=== PATIENT | female | born 1970 | race Hispanic/Latino ===

== ENCOUNTER 2020-04-20 14:58 | Emergency (ER) | payer OTHER ==
[~2020-04-20] VITALS: Ht 162.6 cm; Wt 72.7 kg
[~2020-04-20 14:58] MED LIST: AMOXICILLIN500 MG PO; FLEXERIL PO; KEFLEX500 M1 PO; NAPROSYN500 MG PO; ROBITUSSIN200 MG/10 PO; TESSALON PER100 MG PO; VALTREX1 GM PO; ZITHROMAX250 MG PO; [UNRECOGNIZED DRUG - REMARK]
[2020-04-20] MEDS ORDERED: IBUPROFEN600 MG PO (17:48)
[2020-04-20 18:28] VITALS: BP 140/81
== END 2020-04-20 18:40 | disposition home or self-care (01) | DRG 313 ==
LOC: ED 14:58
DX: R07.89 Other chest pain (principal); V49.40XA Driver injured in collision with unspecified motor vehicles in traffic accident, initial encounter

== ENCOUNTER 2020-09-19 16:02 | Emergency (ER) | payer SELFPAY ==
[~2020-09-19] VITALS: Ht 162.6 cm; Wt 81.0 kg
[~2020-09-19 16:02] MED LIST changes: +IBUPROFEN600 MG PO
[2020-09-19 16:56] LABS: HEMATOCRIT 39.9 % (37.0-47.0); HEMOGLOBIN 12.8 g/dl (12.0-16.0); IMMATURE GRANULOCYTES 0.3 % (0.0-5.0); MEAN CELL VOLUME 93.2 fL CALC (80.0-100.0); MEAN CORPUSCULAR HGB 29.9 pG CALC (26.0-32.0); MEAN CORPUSCULAR HGB CONC 32.1 g/dL CAL (32.0-36.0); NEUT# 7.95 thou/uL (2.00-7.15); RED BLOOD COUNT 4.28 mill/uL (4.20-5.60); RED CELL DISTRI WIDTH 14.6 % (11.5-15.5)
[2020-09-19 17:08] LABS: ALBUMIN 4.4 g/dL (3.2-5.0); ALKALINE PHOSPHATASE 121 u/l (38-126); ANION GAP 10 (6-22 (CALC)); BILIRUBIN, TOTAL 0.6 mg/dL (0.0-1.4); BUN 8 mg/dL (7-17); BUN/CREATININE RATIO 14 (12-20 (CALC)); CARBON DIOXIDE 27 mmol/l (22-30); CHLORIDE 103 mmol/l (95-108); CREATININE 0.6 mg/dL (0.5-1.0); GFR > 60 ML/MIN (>=60 (CALC)); GFR FOR AFR.AMER. > 60 ML/MIN (>=60 (CALC)); POTASSIUM 3.7 mmol/l (3.5-5.1); SGOT/AST 22 u/l (14-36); SODIUM 137 mmol/l (137-146); TOTAL PROTEIN 8.2 g/dL (6.3-8.2)
[2020-09-19] MEDS ORDERED: LISINOPRIL2.5 MG PO (19:06)
[2020-09-19] MEDS ORDERED: TORADOL PO (20:19)
[2020-09-19 21:00] VITALS: BP 139/71
== END 2020-09-19 21:05 | disposition home or self-care (01) | DRG 313 ==
LOC: ED 16:02
PROVIDERS: Family Medicine
DX: R07.89 Other chest pain (principal); E66.3 Overweight

== ENCOUNTER 2023-08-27 10:50 | Emergency (ER) | payer SELFPAY ==
[~2023-08-27] VITALS: Ht 165.1 cm; Wt 81.0 kg
[~2023-08-27 10:50] MED LIST changes: +LISINOPRIL2.5 MG PO; +TORADOL PO
[2023-08-27 11:03] VITALS: BP 133/89
[2023-08-27 11:30] VITALS: BP 122/84
[2023-08-27 12:00] VITALS: BP 122/84
[2023-08-27 12:01] LABS: BASO% 0.4 % (0-3); EOS% 5.3 % (0-8); HEMATOCRIT 38.8 % (37.0-47.0); HEMOGLOBIN 12.7 g/dl (12.0-16.0); LYMPH% 21.6 % (15-41); MEAN CELL VOLUME 92.4 fL CALC (80.0-100.0); MEAN CORPUSCULAR HGB 30.2 pG CALC (26.0-32.0); MEAN CORPUSCULAR HGB CONC 32.7 g/dL CAL (32.0-36.0); MONO% 6.2 % (2-13); NEUT# 6.23 thou/uL (2.00-7.15); NEUT% 66.5 % (42-76); RED BLOOD COUNT 4.2 mill/uL (4.20-5.60)
[2023-08-27 12:19] LABS: ANION GAP 9 (6-22 (CALC)); BUN 13 mg/dL (7-17); BUN/CREATININE RATIO 17 (12-20 (CALC)); CARBON DIOXIDE 24 mmol/l (22-30); CHLORIDE 109 mmol/l (95-108); CREATININE 0.8 mg/dL (0.5-1.0); GFR FOR AFR.AMER. > 60 ML/MIN (>=60 (CALC)); GFR OTHER RACES > 60 ML/MIN (>=60 (CALC)); POTASSIUM 3.9 mmol/l (3.5-5.1); SODIUM 139 mmol/l (137-146)
[2023-08-27 12:30] VITALS: BP 121/80
[2023-08-27] MEDS ORDERED: DOXYCYC MONO100 M3 PO (14:40)
[2023-08-27 14:44] VITALS: BP 121/80
== END 2023-08-27 15:00 | disposition home or self-care (01) | DRG 153 ==
LOC: ED 10:50
PROVIDERS: Emergency Medicine
DX: J02.9 Acute pharyngitis, unspecified (principal); J35.1 Hypertrophy of tonsils; Z20.822 Contact with and (suspected) exposure to COVID-19
CPT/HCPCS: Q9967